=== PATIENT | male | born 1945 | race Caucasian/White ===

== ENCOUNTER 2016-11-22 07:22 | Day surgery (SDC) | payer OTHER ==
[~2016-11-22] VITALS: Ht 177.8 cm; Wt 108.8 kg
[~2016-11-22 07:22] MED LIST: CALCIUM 500 MG1 EACH PO; MAGNESIUM100 MG PO; MULTI-DAY VITA1 EACH PO; OCUVITE TABLET1 EACH PO
[2016-11-22 08:10] VITALS: BP 172/84
[2016-11-22 12:49] VITALS: BP 140/71
[2016-11-22 13:07] VITALS: BP 154/72
== END 2016-11-22 13:24 | disposition home or self-care (01) ==
LOC: SDC 07:22
DX: H35.341 Macular cyst, hole, or pseudohole, right eye (principal); H35.371 Puckering of macula, right eye; H43.821 Vitreomacular adhesion, right eye; E78.5 Hyperlipidemia, unspecified; Z80.7 Family history of other malignant neoplasms of lymphoid, hematopoietic and related tissues
CPT/HCPCS: 93005; J0690; J0713; J3300